=== PATIENT | female | born 2000 | race Caucasian/White ===

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

== ENCOUNTER 2021-11-26 10:11 | Observation (INO) | payer MEDICAID, OTHER, SELFPAY ==
[~2021-11-26] VITALS: Ht 165.1 cm; Wt 141.1 kg
[2021-11-26] MEDS ORDERED: ETON68IM SC ×2 (10:27)
[2021-11-26] MEDS ORDERED: HOME MED LIST COMPLETE! XX SCH (13:45)
[2021-11-26] MEDS ORDERED: MOM 30ML SUSPENSION UDC PO PRN (15:15)
[2021-11-26] MEDS ORDERED: MAALOX 30 ML SUSP *UDC PO PRN (15:15)
[2021-11-26 17:06] LABS: BASO # 0.1 10^3/uL (0.0-0.2); BASO % 0.5 % (0.0-1.0); EOS # 0.1 10^3/uL (0.0-0.5); EOS % 0.8 % (0.0-3.0); HEMATOCRIT 40.8 % (36.0-47.0); HEMOGLOBIN 13.5 g/dl (12.0-15.5); LYMPH # 2.1 10^3/uL (1.5-5.0); LYMPH % 15.6 % (24.0-44.0); MEAN CORPUSCULAR HEMOGLOBIN 28.2 pg (27.0-33.0); MEAN CORPUSCULAR HGB CONC 33.1 g/dl (32.0-36.5); MEAN CORPUSCULAR VOLUME 85.4 fl (80.0-96.0); MONO # 0.6 10^3/uL (0.0-0.8); MONO % 4.7 % (2.0-8.0); NEUTROPHILS # 10.4 10^3/uL (1.5-8.5); RED BLOOD COUNT 4.78 10^6/uL (4.00-5.40); WHITE BLOOD COUNT 13.3 10^3/uL (4.0-10.0)
[2021-11-26 17:26] LABS: BLOOD UREA NITROGEN 9 MG/DL (7-18); CALCIUM LEVEL 9.1 MG/DL (8.5-10.1); CARBON DIOXIDE LEVEL 22 MEQ/L (21-32); CHLORIDE LEVEL 110 MEQ/L (98-107); CREATININE FOR GFR 0.64 MG/DL (0.55-1.30); GLOMERULAR FILTRATION RATE > 60.0 (>60); GLUCOSE, FASTING 94 MG/DL (70-100); POTASSIUM SERUM 4.2 MEQ/L (3.5-5.1); SODIUM LEVEL 140 MEQ/L (136-145)
[2021-11-26 20:45] VITALS: BP 128/71
[2021-11-26] MEDS: HEPARIN SOD (PORCINE) 5000UNITS/ML 1ML VIAL/SYRINGE SC SCH (21:00)
[2021-11-27] MEDS: ACETAMINOPHEN TAB 650MG DOSE (2X325MG) PO PRN ×3 (04:09→21:19)
[2021-11-27 06:00] VITALS: BP 132/74
[2021-11-27] MEDS: HEPARIN SOD (PORCINE) 5000UNITS/ML 1ML VIAL/SYRINGE SC SCH ×2 (08:50→21:19)
[2021-11-27 14:00] VITALS: BP 132/76
[2021-11-27 22:00] VITALS: BP 134/78
[2021-11-28 05:46] VITALS: BP 110/70
[2021-11-28] MEDS: HEPARIN SOD (PORCINE) 5000UNITS/ML 1ML VIAL/SYRINGE SC SCH (08:55)
[2021-11-28] MEDS ORDERED: ASPI81CH33 PO (11:44)
[2021-11-28 12:30] LABS: HEMATOCRIT 41.5 % (36.0-47.0); HEMOGLOBIN 13.3 g/dl (12.0-15.5); MEAN CORPUSCULAR HEMOGLOBIN 27.2 pg (27.0-33.0); MEAN CORPUSCULAR VOLUME 84.9 fl (80.0-96.0); PLATELET COUNT, AUTOMATED 331 10^3/uL (150-450); RED BLOOD COUNT 4.89 10^6/uL (4.00-5.40); WHITE BLOOD COUNT 10.4 10^3/uL (4.0-10.0)
[2021-11-28] MEDS: ACETAMINOPHEN TAB 650MG DOSE (2X325MG) PO PRN (15:30)
== END 2021-11-28 16:15 | disposition home or self-care (01) ==
LOC: M ED 10:11 → M ED INP 15:13 → M MS5PR 20:30
PROVIDERS: ADMIT Family Medicine; ATTEND Family Medicine
DX: S83.104A Unspecified dislocation of right knee, initial encounter (principal); S83.281A Other tear of lateral meniscus, current injury, right knee, initial encounter; S83.511A Sprain of anterior cruciate ligament of right knee, initial encounter; S83.411A Sprain of medial collateral ligament of right knee, initial encounter; S86.111A Strain of other muscle(s) and tendon(s) of posterior muscle group at lower leg level, right leg, initial encounter; W11.XXXA Fall on and from ladder, initial encounter; E66.9 Obesity, unspecified; Z68.43 Body mass index [BMI] 50.0-59.9, adult; Z79.3 Long term (current) use of hormonal contraceptives
CPT/HCPCS: 36415; 73560; 73721; 80048; 85025; 85027; 87635; 96372; 97116; 97162; 97165; 97530; 97535; 99284; J1644

== ENCOUNTER → 2021-11-26 | Outpatient (CLI) | payer OTHER ==
[~2021-11-26] MED LIST: ASPI81CH33 PO; ETON68IM SC
== END ==
LOC: M LAB 09:21
PROVIDERS: ATTEND Student in an Organized Health Care Education/Training Program
DX: S80.01XA Contusion of right knee, initial encounter (principal); W18.30XA Fall on same level, unspecified, initial encounter; Y92.009 Unspecified place in unspecified non-institutional (private) residence as the place of occurrence of the external cause

== ENCOUNTER → 2021-12-01 | Outpatient (CLI) | payer MEDICAID, SELFPAY | LOC: M SOG 10:11 | PROVIDERS: ATTEND Student in an Organized Health Care Education/Training Program | DX: S83.511A Sprain of anterior cruciate ligament of right knee, initial encounter (principal) ==

== ENCOUNTER 2022-01-05 14:18 | Outpatient (RCR) | payer MEDICAID, SELFPAY | END 2022-01-06 | LOC: M PT 14:18 | PROVIDERS: ATTEND Student in an Organized Health Care Education/Training Program | DX: S83.511A Sprain of anterior cruciate ligament of right knee, initial encounter (principal); W18.30XA Fall on same level, unspecified, initial encounter; Y92.009 Unspecified place in unspecified non-institutional (private) residence as the place of occurrence of the external cause ==

== ENCOUNTER → 2022-01-10 | Outpatient (CLI) | payer MEDICAID, SELFPAY ==
[~2022-01-10] MED LIST changes: +ISOVUE-370 76% 100ML VIAL As Ordered ONE
== END ==
LOC: M RAD 17:08
PROVIDERS: ATTEND Orthopaedic Surgery Sports Medicine
DX: M25.561 Pain in right knee (principal)

== ENCOUNTER → 2022-01-18 | Outpatient (CLI) | payer MEDICAID | LOC: M RAD 08:23 | PROVIDERS: ATTEND Orthopaedic Surgery Sports Medicine | DX: M25.561 Pain in right knee (principal) ==

== ENCOUNTER 2022-02-01 16:00 | Outpatient (RCR) | payer MEDICAID, OTHER, SELFPAY ==
[~2022-02-01 16:00] MED LIST changes: -ISOVUE-370 76% 100ML VIAL As Ordered ONE
== END 2022-02-06 23:59 | disposition home or self-care (01) ==
LOC: M PT 16:00
PROVIDERS: ATTEND Student in an Organized Health Care Education/Training Program
DX: S83.511A Sprain of anterior cruciate ligament of right knee, initial encounter (principal)

== ENCOUNTER 2022-02-23 16:00 | Outpatient (RCR) | payer OTHER | END 2022-03-08 | LOC: M PT 16:00 | PROVIDERS: ATTEND Student in an Organized Health Care Education/Training Program | DX: S83.511A Sprain of anterior cruciate ligament of right knee, initial encounter (principal) ==

== ENCOUNTER 2022-04-06 13:38 | Outpatient (RCR) | payer OTHER | END 2022-04-08 | LOC: M PT 13:38 | PROVIDERS: ATTEND Student in an Organized Health Care Education/Training Program | DX: S83.511D Sprain of anterior cruciate ligament of right knee, subsequent encounter (principal); W18.30XD Fall on same level, unspecified, subsequent encounter; Y92.009 Unspecified place in unspecified non-institutional (private) residence as the place of occurrence of the external cause ==

== ENCOUNTER 2022-05-02 14:30 | Outpatient (RCR) | payer OTHER | END 2022-05-09 | LOC: M PT 14:30 | PROVIDERS: ATTEND Student in an Organized Health Care Education/Training Program | DX: S83.511D Sprain of anterior cruciate ligament of right knee, subsequent encounter (principal); W18.30XD Fall on same level, unspecified, subsequent encounter; Y92.009 Unspecified place in unspecified non-institutional (private) residence as the place of occurrence of the external cause ==

== ENCOUNTER → 2022-06-06 | Outpatient (RCR) | payer OTHER | LOC: M PT 05-11 14:26 | PROVIDERS: ATTEND Student in an Organized Health Care Education/Training Program | DX: S83.511A Sprain of anterior cruciate ligament of right knee, initial encounter (principal); W18.30XA Fall on same level, unspecified, initial encounter; Y92.009 Unspecified place in unspecified non-institutional (private) residence as the place of occurrence of the external cause ==

== ENCOUNTER 2022-06-15 14:24 | Outpatient (RCR) | payer OTHER | END 2022-07-07 | LOC: M PT 14:24 | PROVIDERS: ATTEND Student in an Organized Health Care Education/Training Program | DX: S83.511A Sprain of anterior cruciate ligament of right knee, initial encounter (principal) ==

== ENCOUNTER → 2023-02-22 | Outpatient (REF) | payer OTHER ==
[2023-02-22 19:05] LABS: CHLAMYDIA DNA AMPLIFICATION NEGATIVE (NEGATIVE); GC DNA AMPLIFICATION NEGATIVE (NEGATIVE)
== END ==
LOC: M LAB REF 16:49
PROVIDERS: ATTEND Registered Nurse
DX: Z11.3 Encounter for screening for infections with a predominantly sexual mode of transmission (principal)

== ENCOUNTER → 2024-05-30 | Outpatient (REF) | payer OTHER ==
[2024-06-05 09:42] LABS: HPV APTIMA Not Detected (Not Detected)
== END ==
LOC: M LAB REF 13:01
PROVIDERS: ATTEND Registered Nurse
DX: Z01.419 Encounter for gynecological examination (general) (routine) without abnormal findings (principal); B37.31 Acute candidiasis of vulva and vagina
CPT/HCPCS: 87624; G0123